=== PATIENT | male | born 2000 | race Caucasian/White ===

== ENCOUNTER 2025-01-09 13:03 | Emergency (ER) | payer OTHER ==
[~2025-01-09] VITALS: Ht 177.8 cm; Wt 64.9 kg
--- NOTE | 2025-01-09 13:29 | ED.PDOC ---
GI ASSESSMENT HPI Comments 24 y.o male with PMHx of asthma, presents to the ED for a chief complaint of nausea, vomiting and upper abdominal pain that presented 2 days ago. Patient reports 3 episodes of vomiting last night and 2 this morning. Patient denies any diarrhea, fever, chills, cough. Chief Complaint: Nausea/Vomiting Time Seen by MD: 13:24 Primary Care Provider: DR JUNIOR BARON Reviewed Notes: Nurses Notes, Medications, Allergies Allergies: Coded Allergies: NO KNOWN ALLERGIES (Unverified , 03/17/15) Home Meds Active Scripts Ondansetron Odt 4MG Tab (ZOFRAN PO) 4 Mg Tb, 4 MG PO Q8HP PRN for 5 Days, #15 TAB ODT TAB-DISSOLVE IN MOUTH, THEN SWALLOW Prov:CHALO DIETRICH MD 01/09/25 Pantoprazole Sodium Sesquihydr (Protonix) 40 Mg Tab, 40 MG PO DAILY, #30 TAB Prov:CHALO DIETRICH MD 01/09/25 Information Source: Patient Mode of Arrival: Ambulatory Timing: Days (2) Duration: Since onset Quality: Aching Vomitus: None Stool: Normal Severity: Moderate Recent: None Recent Hx of: None Pain Location: Diffuse, Epigastric Modifying Factors: Nothing Associated sign and symptoms: Nausea, Vomiting, Abdominal Pain Past Medical History PAST MEDICAL HISTORY: Denies Surgical History: Denies all surgeries Family History Family History: Unknown, Unobtainable Social History Smoker: Non-Smoker Alcohol: Denies ETOH Use Drugs: Denies Drug Use Lives In: Home Constitutional: denies: chills, diaphoresis, fatigue, fever, malaise, sweats, weakness, others EENTM: denies: blurred vision, double vision, ear bleeding, ear discharge, ear drainage, ear pain, ear ringing, eye pain, eye redness, hearing loss, mouth pain, mouth swelling, nasal discharge, nose bleeding, nose congestion, nose pain, photophobia, tearing, throat pain, throat swelling, voice changes, others Respiratory: denies: cough, hemoptysis, orthopnea, SOB at rest, shortness of b reath, SOB with excertion, stridor, wheezing, others Cardiovascular: denies: chest pain, dizzy spells, diaphoresis, Dyspnea on exertion, edema, irregular heart beat, left arm pain, lightheadedness, palpitations, PND, syncope, others Gastrointestinal: reports: abdominal pain, nausea, vomiting; denies: abdomen distended, blood streaked bowels, constipated, diarrhea, dysphagia, difficulty swallowing, hematemesis, melena, poor appetite, poor fluid intake, rectal bleeding, rectal pain, others Genitourinary: denies: burning, dysuria, flank pain, frequency, hematuria, incontinence, penile discharge, penile sore, pain, testicle pain, testicle swelling, urgency, others Neurological: denies: dizziness, fainting, headache, left sided numbness, left sided weakness, numbness, paresthesia, pre-existing deficit, right sided numbness, right sided weakness, seizure, speech problems, tingling, tremors, weakness, others Musculoskeletal: denies: back pain, gout, joint pain, joint swelling, muscle pain, muscle stiffness, neck pain, others Integumetry: denies: bruises, change in color, change in hair/nails, dryness, laceration, lesions, lumps, rash, wounds, others Allergic/Immunocompromised: denies: Difficulty Healing, Frequent Infections, Hives, Itching, others Hematologic/Lymphatic: denies: anemia, blood clots, easy bleeding, easy bruising, swollen glands, others Endocrine: denies: excessive hunger, excessive sweating, excessive thirst, excessive urination, flushing, intolerance to cold, intolerance to heat, unexplained weight gain, unexplained weight loss, others Psychiatric: denies: anxiety, bipolar disorder, depression, hopeless, panic disorder, schizophrenia, sleepless, suicidal, others All Other Systems: Reviewed and Negative Physical Exam General Appearance: Moderate Distress HEENT: Normal ENT Inspection, Pharynx Normal, TMs Normal Neck: Full Range of Motion, Non-Tender, Normal, Normal Inspection Respiratory: Chest Non-Tender, Lungs Clear, No Accessory Muscle Use, No Respiratory Distress, Normal Breath Sounds Cardiovascular: No Edema, No JVD, No Murmur, No Gallop, Normal Peripheral Pulses, Regular Rate/Rhythm Breast Exam: Deferred Gastrointestinal: Epigastric, No Organomegaly, No Pulsatile Mass, Normal Bowel Sounds, Soft, Tenderness Genitalia: Deferred Pelvic: Deferred Rectal: Deferred Extremities: No calf tenderness, Normal capillary refill, Normal inspection, Normal range of motion, Non-tender, No pedal edema Musculoskeletal : Apperance: Normal Neurologic: Alert, hat mender II-XII nml as Tested, Motor Weakness, Normal Affect, Normal Mood, No Sensory Deficits Cerebellar Function: Normal Reflexes: Normal Skin: Dry, Normal Color, Warm Lymphatic: No Adenopathy Was a procedure done? Was a procedure done?: No GI differential Dx Differential Diagnosis: Esophagitis, Gastroenteritis, Dehydration, Drug toxicity, Electrolyte Imbalance, Food Poisoning, Viral X-Ray, Labs, Meds, VS Vital Signs Date Time Temp Pulse Resp B/P (MAP) Pulse Ox O2 Delivery O2 Flow Rate FiO2 01/09/25 13:11 97.3 105 18 139/86 (103) 95 Lab Test 01/09/25 14:41 Range/Units Sodium Level 133 L 136-145 mmol/L Potassium Level 4.1 3.5-5.1 mmol/L Chloride Level 97 L 98-107 mmol/L Carbon Dioxide Level 26 20-31 mmol/L Anion Gap 10 5-15 Blood Urea Nitrogen 11 9-23 mg/dL Creatinine 1.07 0.700-1.30 mg/dL Glomerular Filtration Rate Calc 99 >90 mL/min BUN/Creatinine Ratio 10.3 10.0-20.0 Serum Glucose 104 74-106 mg/dL Calcium Level 10.6 H 8.7-10.4 mg/dL The patient's chemistry panel is within normal limits The patient was being discharged The patient will follow up with the primary care doctor The patient will return to the emergency department's condition worsens The patient was given substance abuse counseling Time of 1ST Reevaluation: 13:27 Reevaluation 1ST: Unchanged Patient Education/Counseling: Diagnosis, Treatment, Prognosis, Need For Follow Up Family Education/Counseling: No Family Present Departure 1 Departure Time of Disposition: 15:36 Impression: Primary Impression: Acute gastritis Qualified Codes: K29.00 - Acute gastritis without bleeding Disposition: HOME / SELF CARE / HOMELESS Condition: Fair e-Prescriptions Ondansetron Odt 4MG Tab (ZOFRAN PO) 4 Mg Tb 4 MG PO Q8HP PRN for 5 Days, #15 TAB ODT TAB-DISSOLVE IN MOUTH, THEN SWALLOW Prov: CHALO DIETRICH MD 01/09/25 Pantoprazole Sodium Sesquihydr (Protonix) 40 Mg Tab 40 MG PO DAILY, #30 TAB Prov: CHALO DIETRICH MD 2/9/25 Discharged With: Self Critical Care Note Critical Care Time?: No Stability Stability form required: No I personally scribed for CHALO DIETRICH MD ([email or web address]) on 01/09/25 at 13:29. Electronically submitted by Jazmyne Benjamin ([facility]). CHALO DIETRICH MD Jan 09, 2025 13:29
[2025-01-09] MEDS: SODIUM CHLORIDE 0.9% 1,000 ML IV ONE (13:30)
[2025-01-09 15:01] LABS: Potassium 4.1 mmol/L (3.5-5.1)
[2025-01-09 15:03] LABS: Anion Gap 10 (5-15); Carbon Dioxide 26 mmol/L (20-31)
[2025-01-09 15:07] LABS: Calcium 10.6 mg/dL (8.7-10.4); Chloride 97 mmol/L (98-107); Sodium 133 mmol/L (136-145)
[2025-01-09 15:08] LABS: BUN/Creatinine Ratio 10.3 (10.0-20.0); Blood Urea Nitrogen 11 mg/dL (9-23); Glucose 104 mg/dL (74-106)
[2025-01-09] MEDS ORDERED: ZOFR4T PO (15:35)
[2025-01-09] MEDS ORDERED: PANT40TA2 PO (15:35)
[2025-01-09 17:59] VITALS: TEMP 98.4
[2025-01-09 18:35] VITALS: PULSE 89; RESP 20; O2SAT 99
[2025-01-09] MEDS: PROCHLORPERAZINE EDISYLATE 5 MG/ML 2ML VIAL IV ONE (18:41)
[2025-01-09] MEDS: PANTOPRAZOLE 40 MG/10 ML VIAL INJ IV ONE (18:41)
[2025-01-09] MEDS: MORPHINE SULFATE 4 MG/ML SYR/VIAL IV ONE (18:42)
[2025-01-09 19:12] VITALS: BP 128/78; PULSE 68; RESP 20
== END 2025-01-09 19:23 | disposition home or self-care (01) ==
LOC: ER 13:03
DX: K29.00 Acute gastritis without bleeding (principal)
CPT/HCPCS: 36415; 80048; 96361; 96374; 96375; 99284; J0780; J2270; J2470; J7030